=== PATIENT | female | born 1980 | race American Indian/Alaskan Native ===

== ENCOUNTER 2017-11-16 01:09 | Emergency (ER) | payer MEDICAID ==
[2017-11-16 01:30] VITALS: BP 119/79; PULSE 69; RESP 17; TEMP 98.6; O2SAT 100
--- NOTE | 2017-11-16 01:52 | ED PDOC ---
HPI: Allergic Reaction Time Seen by Provider: 11/16/17 01:25 Chief Complaint (Nursing): Allergic Reaction Chief Complaint (Provider): allergic reaction History Per: Patient History/Exam Limitations: no limitations Onset/Duration Of Symptoms: Mins (30) Current Symptoms Are (Timing): Still Present Context: Food Additional Complaint(s): 37 y/o female presents to ED for evaluation of possible allergic reaction sustained 30 minutes prior to arrival. Patient states she ate something that contained shrimp in it and snicker's bar, shortly after developed tingling to tongue and itching to back of throat. Denies facial swelling, difficulty speaking/swallowing, chest pain, shortness of breath, palpitations, changes in bowel movements. Past Medical History Reviewed: Historical Data, Nursing Documentation, Vital Signs Vital Signs: Last Vital Signs Temp 98.6 F 11/16/17 01:20 Pulse 69 11/16/17 01:20 Resp 17 11/16/17 01:20 BP 119/79 11/16/17 01:20 Pulse Ox 100 11/16/17 01:20 - Medical History PMH: No Chronic Diseases - Surgical History Surgical History: Appendectomy - Family History Family History: States: No Known Family Hx - Immunization History Hx Tetanus Toxoid Vaccination: No Hx Influenza Vaccination: No Hx Pneumococcal Vaccination: No - Home Medications Home Medications: Ambulatory Orders Medication Instructions Recorded DiphenhydrAMINE [Benadryl] 50 mg PO Q6 PRN #20 cap 11/16/17 Prednisone 50 mg PO DAILY #4 tablet 11/16/17 - Allergies Allergies/Adverse Reactions: Allergies Allergy/AdvReac Type Severity Reaction Status Date / Time shrimp Allergy Mild SWELLING Verified 11/16/17 01:41 walnut Allergy Mild SWELLING Verified 11/16/17 01:41 Review of Systems ROS Statement: Except As Marked, All Systems Reviewed And Found Negative ENT: Positive for: Other (throat itching, tongue tingling) Physical Exam - Reviewed Nursing Documentation Reviewed: Yes Vital Signs Reviewed: Yes - Physical Exam Appears: Positive for: Well, Non-toxic, No Acute Distress Head Exam: Positive for: ATRAUMATIC, NORMAL INSPECTION, NORMOCEPHALIC Skin: Positive for: Normal Color Eye Exam: Positive for: Normal appearance ENT: Positive for: Normal ENT Inspection Cardiovascular/Chest: Positive for: Regular Rate, Rhythm Respiratory: Positive for: Normal Breath Sounds Gastrointestinal/Abdominal: Positive for: Normal Exam Extremity: Positive for: Normal ROM Neurologic/Psych: Positive for: Alert, Oriented (x3) - ECG O2 Sat by Pulse Oximetry: 100 - Progress ED Course And Treament: PAtient given Benadryl PO and PRednisone PO with improvement of symptoms Patient requires no further intervention in the ED and is stable for discharge at this time Rx Benadryl, Prednisone provided Advised follow up PMD 2-3 days Return precautions given Disposition - Clinical Impression Clinical Impression: Allergic reaction - Patient ED Disposition Is Patient to be Admitted: No Counseled Patient/Family Regarding: Diagnosis, Need For Followup, Rx Given - Disposition Referrals: Didier Schmidt MD [Primary Care Provider] - Disposition: Routine/Home Disposition Time: 02:43 Condition: IMPROVED Prescriptions: DiphenhydrAMINE [Benadryl] 50 mg PO Q6 PRN #20 cap PRN Reason: Allergy Symptoms Prednisone 50 mg PO DAILY #4 tablet Instructions: Food Allergy Forms: [employer] (Citizen [place])
== END 2017-11-16 02:55 | disposition home or self-care (01) ==
LOC: H.ER 01:09
DX: T78.40XA Allergy, unspecified, initial encounter (principal)

== ENCOUNTER 2017-11-16 06:53 | Emergency (ER) | payer MEDICAID ==
--- NOTE | 2017-11-16 07:53 | ED PDOC ---
HPI: Skin/Bite Injury Time Seen by Provider: 11/16/17 07:28 Chief Complaint (Nursing): Allergic Reaction Chief Complaint (Provider): Allergic Reaction History Per: Patient History/Exam Limitations: no limitations Onset/Duration Of Symptoms: Hrs Current Symptoms Are (Timing): Better Additional Complaint(s): 37 year old undomiciled female presents to the ER for discharge papers, prescription and requesting Benadryl or Tylenol. Patient was seen overnight for allergic reaction after eating tuna salad and felt her tongue tingling and itchiness. Her itchiness has improved and she she does not state why she did not receive her discharge papers last night. Patient has no other complaints right now and denies any rash or itchiness. PMD: No Family Provider Past Medical History Reviewed: Historical Data, Nursing Documentation, Vital Signs Vital Signs: Last Vital Signs Temp 98.2 F 11/16/17 08:04 Pulse 78 11/16/17 08:04 Resp 18 11/16/17 08:04 BP 106/60 11/16/17 08:04 Pulse Ox - Medical History PMH: No Chronic Diseases - Surgical History Surgical History: Appendectomy - Family History Family History: States: Unknown Family Hx - Social History Current smoker - smoking cessation education provided: No Alcohol: None Drugs: Denies - Immunization History Hx Tetanus Toxoid Vaccination: No Hx Influenza Vaccination: No Hx Pneumococcal Vaccination: No - Home Medications Home Medications: Ambulatory Orders Medication Instructions Recorded DiphenhydrAMINE [Benadryl] 50 mg PO Q6 PRN #20 cap 11/16/17 Prednisone 50 mg PO DAILY #4 tablet 11/16/17 - Allergies Allergies/Adverse Reactions: Allergies Allergy/AdvReac Type Severity Reaction Status Date / Time shrimp Allergy Mild SWELLING Verified 11/16/17 01:41 walnut Allergy Mild SWELLING Verified 11/16/17 01:41 Review of Systems ROS Statement: Except As Marked, All Systems Reviewed And Found Negative Skin: Negative for: Rash, Other (itchiness) Psych: Negative for: Suicidal ideation (homicidal ideation) Physical Exam - Reviewed Nursing Documentation Reviewed: Yes Vital Signs Reviewed: Yes - Physical Exam Appears: Positive for: Non-toxic, No Acute Distress Head Exam: Positive for: ATRAUMATIC, NORMAL INSPECTION, NORMOCEPHALIC Skin: Positive for: Normal Color, Warm, Dry. Negative for: Rash Eye Exam: Positive for: Normal appearance Neurologic/Psych: Positive for: Alert, Oriented (x3). Negative for: Motor/ Sensory Deficits - ECG Pulse Ox Interpretation: Normal Medical Decision Making Medical Decision Making: Time: 739 Initial Impression: Patient with allergic reaction was treated on previous visit Initial Plan: --Tylenol 650mg --Reevaluation Upon provider evaluation patient is medically stable, and requires no further treatment or observation in the ED at this time. Patient given discharge papers and prescription as needed. Scribe Attestation: Documented by Rubén Simeon, acting as a scribe for Tiffany Plummer MD. Provider Scribe Attestation: All medical record entries made by the Scribe were at my direction and personally dictated by me. I have reviewed the chart and agree that the record accurately reflects my personal performance of the history, physical exam, medical decision making, and the department course for this patient. I have also personally directed, reviewed, and agree with the discharge instructions and disposition. Disposition - Clinical Impression Clinical Impression: Allergic reaction - Patient ED Disposition Is Patient to be Admitted: No - Disposition Referrals: [facility] [Outside] Disposition: Routine/Home Disposition Time: 07:40 Condition: GOOD Prescriptions: DiphenhydrAMINE [Benadryl] 50 mg PO Q6 PRN #20 cap PRN Reason: Allergy Symptoms Prednisone 50 mg PO DAILY #4 tablet Instructions: Food Allergy Forms: [employer] ([place])
[2017-11-16 08:05] VITALS: BP 106/60; PULSE 78; RESP 18; TEMP 98.2
== END 2017-11-16 08:37 | disposition home or self-care (01) ==
LOC: H.ER 06:53
DX: T78.40XA Allergy, unspecified, initial encounter (principal)

== ENCOUNTER 2017-12-04 03:06 | Emergency (ER) | payer MEDICAID ==
[2017-12-04 03:15] VITALS: BMI 20.9
[2017-12-04 03:21] VITALS: BP 138/92; PULSE 90; RESP 18; TEMP 98.2; O2SAT 98
--- NOTE | 2017-12-04 03:43 | ED PDOC ---
HPI: CCC, URI, Sore Throat Chief Complaint (Provider): Throat pain x 2 hours History Per: Patient History/Exam Limitations: no limitations Have you had recent travel within the past 21 days to any of the following countries: [place], [place], [place] or [place]?: No Onset/Duration Of Symptoms: Hrs Additional Complaint(s): 37 yo female presents for evaluation of throat pain x 2 hours. Pt states she is allergic to nuts and ate a snCotera bar at approx 2130 on 12/03/17. Pt states ate it because she wanted too. Pt told triage nurse she was allergic to shrimp and walnut which was also in chart from previous visit however told me all nuts. <Beba Simons - Last Filed: 12/04/17 03:55> <Edwin Christy - Last Filed: 12/05/17 05:08> Time Seen by Provider: 12/04/17 03:15 Chief Complaint (Nursing): ENT Problem Past Medical History Reviewed: Historical Data, Nursing Documentation, Vital Signs Vital Signs: Last Vital Signs Temp 98.2 F 12/04/17 03:15 Pulse 90 12/04/17 03:15 Resp 18 12/04/17 03:15 BP 138/92 H 12/04/17 03:15 Pulse Ox 98 12/04/17 03:15 - Medical History PMH: No Chronic Diseases - Surgical History Surgical History: Appendectomy - Family History Family History: States: Unknown Family Hx - Living Arrangements Living Arrangements: Other - Social History Current smoker - smoking cessation education provided: No Alcohol: None Drugs: Denies - Immunization History Hx Tetanus Toxoid Vaccination: No Hx Influenza Vaccination: No Hx Pneumococcal Vaccination: No <Beba Simons - Last Filed: 12/04/17 03:55> Vital Signs: Last Vital Signs Temp 98.2 F 12/04/17 03:15 Pulse 90 12/04/17 03:15 Resp 18 12/04/17 03:15 BP 138/92 H 12/04/17 03:15 Pulse Ox 98 12/04/17 03:56 <Edwin Christy - Last Filed: 12/05/17 05:08> - Home Medications Home Medications: Ambulatory Orders Medication Instructions Recorded DiphenhydrAMINE [Benadryl] 50 mg PO Q6 PRN #20 cap 11/16/17 RX: Prednisone 50 mg PO DAILY #4 tablet 11/16/17 - Allergies Allergies/Adverse Reactions: Allergies Allergy/AdvReac Type Severity Reaction Status Date / Time shrimp Allergy Mild SWELLING Verified 12/04/17 03:15 walnut Allergy Mild SWELLING Verified 12/04/17 03:15 Review of Systems ROS Statement: Except As Marked, All Systems Reviewed And Found Negative Constitutional: Negative for: Fever, Chills ENT: Positive for: Throat Pain Cardiovascular: Negative for: Chest Pain Respiratory: Negative for: Cough, Shortness of Breath Gastrointestinal: Negative for: Nausea, Vomiting, Abdominal Pain <Beba Simons - Last Filed: 12/04/17 03:55> Physical Exam - Reviewed Nursing Documentation Reviewed: Yes Vital Signs Reviewed: Yes - Physical Exam Appears: Positive for: Well, Non-toxic, No Acute Distress Head Exam: Positive for: ATRAUMATIC, NORMAL INSPECTION, NORMOCEPHALIC Skin: Positive for: Normal Color, Warm, DRY Eye Exam: Positive for: Normal appearance, EOMI, PERRL ENT: Positive for: Normal ENT Inspection, Pharynx Is (Patent ) Neck: Positive for: Normal, Painless ROM Cardiovascular/Chest: Positive for: Regular Rate, Rhythm Respiratory: Positive for: Normal Breath Sounds. Negative for: Accessory Muscle Use, Respiratory Distress Back: Positive for: Normal Inspection Extremity: Positive for: Normal ROM Neurologic/Psych: Positive for: Alert, Oriented <Beba Simons - Last Filed: 12/04/17 03:55> - ECG O2 Sat by Pulse Oximetry: 98 Pulse Ox Interpretation: Normal <Beba Simons - Last Filed: 12/04/17 03:55> Disposition - Patient ED Disposition Is Patient to be Admitted: No Counseled Patient/Family Regarding: Diagnosis, Need For Followup - Disposition Disposition: Routine/Home Disposition Time: 03:56 <Beba Simons - Last Filed: 12/04/17 03:55> <Edwin Christy - Last Filed: 12/05/17 05:08> - Clinical Impression Clinical Impression: Adjustment disorder - Disposition Referrals: [facility] [Outside] Condition: GOOD Additional Instructions: Pt is medically and psychiatrically cleared for incarceration. Instructions: Adjustment Disorder Forms: [facility] ([place]namese) - PA / SENIOR SOFTWARE QUALITY ANALYST / Resident Statement MD/DO has reviewed & agrees with the documentation as recorded. <Edwin Christy - Last Filed: 12/05/17 05:08>
== END 2017-12-04 04:10 ==
LOC: H.ER 03:06
DX: F43.20 Adjustment disorder, unspecified (principal); Z00.8 Encounter for other general examination